=== PATIENT | male | born 1995 | race African-American/Black ===

== ENCOUNTER 2018-08-16 13:58 | Emergency (ER) | payer SELFPAY ==
[2018-08-16 14:23] VITALS: BP 115/68
--- NOTE | 2018-08-16 14:37 | ER Document Report ---
HPI - HPI Pain Level: Denies Notes: Patient is a 22-year-old male who presents with chief complaint of request for work note. Patient reports he had a headache earlier, he left work went home took Tylenol the headache resolved. Patient tried to go back to work and they state that he cannot be cleared for work and thus he has a work note. Patient has no symptoms at this time. - CONSTITUTIONAL Constitutional: DENIES: Fever, Chills Past Medical History - General Information source: Patient - Social History Smoking Status: Never Smoker Chew tobacco use (# tins/day): No Frequency of alcohol use: None Drug Abuse: None Family History: Arthritis, DM, Malignancy Patient has suicidal ideation: No Patient has homicidal ideation: No Renal/ Medical History: Denies: Hx Peritoneal Dialysis Musculoskeletal Medical History: Reports Hx Musculoskeletal Trauma Traumatic Medical History: Reports: Hx Fractures - wrist and collar bone - Immunizations Immunizations up to date: Yes Hx Diphtheria, Pertussis, Tetanus Vaccination: Yes Vertical Provider Document - CONSTITUTIONAL Notes: PHYSICAL EXAMINATION: GENERAL: Well-appearing, well-nourished and in no acute distress. HEAD: Atraumatic, normocephalic. EYES: Pupils equal round extraocular movements intact, conjunctiva are normal. ENT: Nares patent NECK: Normal range of motion LUNGS: No respiratory distress Musculoskeletal: Normal range of motion NEUROLOGICAL: Normal speech, normal gait. PSYCH: Normal mood, normal affect. SKIN: Warm, Dry, normal turgor, no rashes or lesions noted. - INFECTION CONTROL TRAVEL OUTSIDE OF THE [place] IN LAST 30 DAYS: No Course - Re-evaluation Re-evalutation: Patient has no physical complaints today. Patient given work note so that he can return to work today. - Vital Signs Vital signs: Temp Pulse Resp BP Pulse Ox 97.8 F 63 16 115/68 100 08/16/18 14:19 08/16/18 14:19 08/16/18 14:19 08/16/18 14:19 08/16/18 14:19 Discharge - Discharge Clinical Impression: Normal physical examination Condition: Stable Disposition: HOME, SELF-CARE Additional Instructions: Patient was seen and evaluated in our emergency department on 08/16/18 and is cleared to return to work today with no restrictions, 08/16/18. Forms: Return to Work Referrals: TRUONG HUNTER MD [Primary Care Provider] - Follow up as needed
== END 2018-08-16 14:43 | disposition home or self-care (01) ==
LOC: ER 13:58
DX: Z71.1 Person with feared health complaint in whom no diagnosis is made (principal); R51 Headache
CPT/HCPCS: 99283